=== PATIENT | male | born 1990 | race Caucasian/White ===

== ENCOUNTER 2024-01-02 16:36 | Emergency (ER) | payer BC, SELFPAY ==
[2024-01-02 16:37] VITALS: BP 165/98
[2024-01-02 17:05] VITALS: BMI 19.5
[2024-01-02 17:25] LABS: % Basophils 0.3 % (0-2); % Eosinophils 1.4 % (0-6); % Immature Granulocytes 0.2 % (0-0.5); % Lymphocytes 26.9 % (20.5-51.1); % Monocytes 9.3 % (1.7-9.3); % Neutrophils 61.9 % (42.2-75.2); Absolute Eosinophils 0.1 10^3/uL (0-0.7); Absolute Lymphocytes 1.6 10^3/uL (1.2-3.4); Absolute Monocytes 0.6 10^3/uL (0.1-0.6); Absolute Neutrophils 3.7 10^3/uL (1.4-6.5); Hematocrit 41.4 % (39.0-52.0); Hemoglobin 15.1 g/dL (13.0-18.0); Mean Corp Hgb Conc. 36.5 g/dL (33.0-37.0); Mean Corpuscular Hgb 30.6 pg (27.0-31.0); Mean Platelet Volume 9.3 fL (7.4-10.4); Nucleated Red Blood Cells % 0 % (-); Platelet Count 218 10^3/uL (130-400); Red Blood Cell Count 4.93 10^6/uL (4.70-6.10); White Blood Cell Count 5.9 10^3/uL (4.8-10.8)
[2024-01-02 17:39] LABS: ALT (SGPT) 17 U/L (0-50); AST (SGOT) 24 U/L (17-59); Albumin 4.7 g/dl (3.5-5.0); Alkaline Phosphatase 84 U/L (38-126); Blood Urea Nitrogen 17 mg/dl (9-20); Calcium 10.1 mg/dl (8.4-10.2); Carbon Dioxide 26 mmol/L (22-30); Chloride 99 mmol/L (98-107); Estimated Creatinine Clearance 118 ml/min; Glucose 97 mg/dl (70-99); Potassium 4.1 mmol/L (3.5-5.1); Sodium 134 mmol/L (135-145); Total Bilirubin 1.1 mg/dl (0.2-1.3); Total Protein 7.3 g/dl (6.3-8.2); eGFR > 60.00
[2024-01-02 17:40] LABS: Lipase 87 U/L (23-300)
[2024-01-02 18:20] VITALS: BP 138/82
[2024-01-02 18:38] LABS: Urine Albumin Negative (Neg - Trace); Urine Bilirubin Negative (Negative); Urine Character Clear (Clear); Urine Color Yellow; Urine Glucose Negative (Negative); Urine Ketone 1+ (Negative); Urine Leukocyte Negative (Negative); Urine Nitrite Negative (Negative); Urine Occult Blood Negative (Negative); Urine Specific Gravity 1.015 (<1.030); Urine Urobilinogen Negative (Neg - 1+)
--- NOTE | 2024-01-02 19:31 | ED.GENMED ---
History of Present Illness
General
Chief Complaint: Abdominal Pain
Source: patient
Exam Limitations: none
Time Seen by Provider: 01/02/24 17:31
Nursing documentation reviewed up to this point in time: agreed with
Travel History
Have you had any contact with someone who has COVID-19?: No
Do you have any symptoms of coronavirus? Fever > 100 degrees, chills, cough, shortness of breath, sore throat, loss of taste or smell, muscle aches, or headache?: No
History of Present Illness
History of Present Illness:
33-year-old male with past medical history of previous cardiac ablation for SVT presenting to the emergency department today with concerns of intermittent right upper quadrant pain over the past few nights seems to improve during the day not
specifically always with drinking and eating. No specific chest pain nausea vomiting changes in bowel movements.
Review of Systems
Review of Systems
Allergies reviewed?: Yes
All Other Systems: ROS reviewed and negative except as documented in HPI and ROS
Phy Exam
Physical Exam
Physical Exam:
GENERAL: Alert , in no apparent distress
EYE: pupils equal and reactive
NECK: Supple, no significant adenopathy.
ENT: o/p clr, mmm.
CARDIAC: Regular rate and rhythm .
LUNGS: Clear breath sounds bilaterally, no acute respiratory distress, no wheezes/rales/rhonchi
ABDOMEN: Mild tenderness palpation to the right upper quadrant otherwise soft benign abdomen
NEUROLOGICAL: Alert and oriented, no focal neuro deficits
SKIN: Warm and dry, skin intact.
MUSCULOSKELETAL: No edema, well perfused.
PSYCH: Normal and appropriate interaction.
Course
Orders/Labs/Results
Orders:
Orders
01/02/24 17:12
Complete Blood Count/With Diff Urgent
Comprehensive Metabolic Panel Urgent
Lipase Urgent
01/02/24 17:36
US Abdomen Complete/Upper Urgent
Comment:
Reason For Exam: RUQ pain
01/02/24 18:32
Urinalysis Reflex To Culture Urgent
Date Specimen was Collected: 01/02/24
Time Specimen was Collected: 18:21
01/02/24 19:22
Chest [CR Chest - 2 Views ] Urgent
Comment:
Reason For Exam: right lower cp
Abnormal Lab Results
01/02/24 01/02/24
17:12 18:32
Sodium 134 L mmol/L
(135-145)
Urine Ketones 1+ A
(Negative)
01/02/24 17:12
01/02/24 17:12
Vital Signs
Initial and Last Documented VS:
Initial Vital Signs
Temp Pulse Resp BP Pulse Ox
98.4 F 82 18 165/98 98
01/02/24 16:37 01/02/24 16:37 01/02/24 16:37 01/02/24 16:37 01/02/24 16:37
Last Documented Vital Signs
Temp Pulse Resp BP Pulse Ox
98.4 F 76 18 138/82 99
01/02/24 16:37 01/02/24 18:20 01/02/24 18:20 01/02/24 18:20 01/02/24 18:20
MDM/Problems Addressed
MDM/Problems Addressed:
33-year-old male presenting to the emergency department today with concerns of right upper quadrant abdominal pain intermittently over the past few days symptoms somewhat improved prior to my assessment very minimal pain on exam ultrasound ordered
without signs of any emergent pathology labs unremarkable normal bili normal level liver function test no white count. Patient no distress with normal vital signs. Chest x-ray without abnormalities to right lower lung patient peers stable for
outpatient management return precautions given.
*Critical Care Note
Total Time (30-74mins, 75-104mins- exclusive of procedures): Not Applicable
ED Attending Note
-
Portions of this chart may have been created with voice recognition software.� Occasional wrong word or��sound alike� substitutions may have occurred due to the inherent limitations of voice recognition software.
Discharge Plan
Departure
Patient Disposition: Home (Routine Discharge)
Date of Disposition: 01/02/24
Time of Disposition: 19:40
Patient with high blood pressure during this ER visit?: No
Condition: Good
Covid-19: Not Applicable
Discharge Problem:
Abdominal pain
Instructions: Abdominal Pain
Prescriptions:
No Action
lisinopril 20 mg Tablet
20 mg PO DAILY
bismuth subsalicylate [Pepto-Bismol] 262 mg/15 mL Suspension
524 mg PO DAILYPRN PRN (Reason: stomach issues)
clindamycin HCl
1 cap PO QID
Patient Comments:
01/02/2024, pt. unsure of strength; pt. instructed to take one capsule QID for 10 days; pt. states he has roughly 3 days left of this abx.; pt.'s pharmacy closed at time of interview and pt. has no [facility] records.
Referrals:
Hilda Benites DO [Family Provider] -
Activity Restrictions/Additional Instructions:
You came to the emergency department today with concerns of right upper abdominal pain. Here you had an ultrasound without emergent findings labs unremarkable normal chest x-ray as well. Please follow-up closely as an outpatient over the next week
or so. Return to the emergency department for any worsening, new or concerning symptoms.
Interventions
Interventions:
*Risk Screen - Suicide Last Done: 01/02/24 16:37
*General Assessment Last Done: 01/02/24 16:37
*Neglect/Abuse Screening Last Done: 01/02/24 16:37
ED- Fall Risk Assessment Last Done: 01/02/24 17:15
*ED COVID-19 Vaccine History Last Done: 01/02/24 16:37
KI-Crlpln-Whnzmzknxu Assessment Last Done: 01/02/24 17:15
Discharge Date and Time
Print Language: BENGALI
[2024-01-02 20:02] VITALS: BP 136/89
== END 2024-01-02 20:03 | disposition home or self-care (01) ==
LOC: EMR 16:36
PROVIDERS: Physician Assistant; EMERGENCY PHYSICIAN Emergency Medicine; FAMILY PHYSICIAN Family Medicine
DX: R10.11 Right upper quadrant pain (principal)
CPT/HCPCS: 99285; 71046; 76700; 80053; 81003; 83690; 85025

== ENCOUNTER 2024-11-05 06:20 | Day surgery (SDC) | payer BC, SELFPAY ==
[2024-11-05] VITALS (10 sets, daily range): BP systolic 134–146; BP diastolic 78–100; BMI 21.2
[2024-11-05] MEDS: NORMOSOL-R/PLASMALYTE-A 1000 IV (10:38)
[2024-11-05] MEDS: TYLENOL 1000 MG PO (10:38)
--- NOTE | 2024-11-05 10:57 | W.SUR.PREOP ---
Pre-Operative Surgical Note
-
I have examined this patient prior to the performance of the scheduled procedure.
The patient's condition is unchanged from the time of the current History and
Physical and the patient is able to undergo the scheduled procedure.
--- NOTE | 2024-11-05 10:57 | HP.FOC2 ---
Focused History & Physical
Chief Complaint
HPI:
Chief Complaint: Left inguinal hernia
HPI / Indication for Planned Procedure:
This is a 34-year-old male with a symptomatic left inguinal hernia
Relevant Past Medical History: Negative
Relevant Social History: Negative
Relevant Family History: Negative
Relevant Past Surgical History: Negative
Review of Systems
Review of Pertinent Systems: All Systems Negative
Medication
See Medication form for detailed medications: Yes
Medication List (including Herbals & OTC):
losartan 50 mg tablet 50 mg PO DAILY 10/30/24
Medications Reviewed: Yes
Allergies and Reactions
Patient has Allergies: Yes
Noted Allergies and Reactions:
Allergy/AdvReac Type Severity Reaction Status Date / Time
No Known Allergies Allergy Verified 11/05/24 10:12
Pertinent Physical Exam
All Other Systems: Negative
Head/Neck: Normal
Diagnosis / Assessment
This is a 34-year-old male with a symptomatic left inguinal hernia
Plan / Procedure
This is a 34-year-old male with a symptomatic left inguinal hernia. Will plan for a robotic left inguinal hernia repair with mesh.
Anesthesia/Sedation to be done by Anesthesia Provider: Yes
--- NOTE | 2024-11-05 12:44 | W.IMMPOSTOP ---
Surgical Immed Post Op Note
-
Primary Surgeon: Rafat Peña MD
Assisting Surgeon: None
Pre-op Diagnosis: Left inguinal hernia
Post-op Diagnosis: Same
Procedure Performed: Robotic left inguinal hernia repair with mesh
Anesthesia Type: General
Specimen / Cultures: None
Estimated Blood Loss: 1 cc
Complications: None
Operative Findings: Left indirect inguinal hernia. No direct or femoral components. No cord lipoma identified. After achieving the critical view of the MPO, the space was reinforced with a large left Bard 3D max uncoated polypropylene mesh.
--- NOTE | 2024-11-05 12:46 | OR.RPT ---
Addendum entered and electronically signed by Rafat Peña MD 11/05/24 14:54:
Under procedure description:
During closure of the flap no Angiocath was inserted and no local was instilled in the preperitoneal space. The area of the flap WAS evacuated using a metal suction cannula to ensure the mesh was flush with the abdominal wall and there were no
folds.
Original Note:
Operative Report
Operative Report
Patient Name: Michael Dallas
: 1990
Date of Operation: 11/05/2024
Preoperative Diagnosis: Reducible Inguinal hernia, left
Postoperative Diagnosis: Same
Procedure(s):
Robotic Inguinal Hernia Repair with mesh, left (ROULA approach)
Surgeon(s):
Dr. Peña
Cosmetic Sales Advisor(s):
JOSE Nelson
Anesthesia: General
Estimated Blood Loss: 1 cc
Urine Output: None
Drains/Lines/Implants: Large 3D Max Bard mid weight uncoated polypropylene mesh
Specimens: None
Indication for surgery: The patient has a history of groin pain and noted on exam to have a Left inguinal Hernia(s). Following review of therapeutic options they have elected to undergo a minimally invasive repair.
Operative Findings: Left indirect inguinal hernia. No direct or femoral components. No cord lipoma identified. After achieving the critical view of the MPO, the space was reinforced with a large left Bard 3D max uncoated polypropylene mesh.
Details of the operation:
The patient was brought to the Operating Room and placed in the supine position with the arms tucked. IV antibiotics were infused and Venodyne stockings placed. Following uneventful induction of general endotracheal anesthesia, an orogastric tube
was placed. The abdomen was prepped and draped in the usual sterile fashion. The abdomen was entered using a Veress technique which required 1 pass, pneumoperitoneum to 15 mmHg was obtained without difficulty. An 8mm trochar was passed through the
abdominal wall roughly 20 cm cephalad to the inguinal canal. We then confirmed that no inadvertent injury was made while passing the trocar or Veress needle. We then placed two additional 8 mm ports in the left upper and right upper quadrants. We
then docked the robot with a Prograsper in the left hand port and monopolar scissors in the right. Left indirect hernia, no defect noted on the right. We then began by creating a flap on the left side at the level of the ASIS laterally working our
way medially to the medial umbilical fold. Staying onto the peritoneum we were able to circumferentially dissect around the hernia sac and and peel it off of the underlying spermatic cord and testicular vessels, taking care to preserve them.
Medially we identified the midline pubis as well as King's ligament and ensured to dissect 2 cm below the pubic rim over the bladder. After exposure of the entire myopectineal orifice we identified and reduced: A medium sized indirect inguinal
hernia, no direct inguinal hernia, no femoral hernia, and no cord lipoma
We then fixated a large 3D max mesh with a 2-0 Vicryl stitch at coopers medially and superior laterally. The flap was then closed with a running 2-0 barbed monocryl suture ensuring that the tail was cut flush with the medial fat pad so that no
barbs were exposed. During the closure of the flap an Angiocath was inserted and 20 cc of quarter percent Marcaine was instilled. The area in the flap cavity was then evacuated of air confirming that the mesh was flush and there were no folds. All
needles and instruments were then removed and the robot was undocked. The abdomen was then desufflated, and pneumoperitoneum evacuated. All skin sites were then closed with 4-0 Monocryl followed by Dermabond. Counts were correct and overall, the
patient tolerated the procedure well and was taken to the Recovery Room postoperatively in stable condition.
I was the attending physician and performed the procedure with assistance of the PA above. The assistance of JOSE Nelson was required due to the complexity of the procedure. During the procedure Ame assisted with port placement, instrument
and needle exchanges, and closure of the wound. I was present for all portions of the case, excluding skin closure.
Rafat Peña MD
[2024-11-05] MEDS: ROXICODONE 5 MG PO (13:56)
[2024-11-05] MEDS: ZOFRAN 4 MG IV (15:19)
== END 2024-11-05 15:30 | disposition home or self-care (01) ==
LOC: SDS 06:20
PROVIDERS: ATTENDING PHYSICIAN Surgery
DX: K40.90 Unilateral inguinal hernia, without obstruction or gangrene, not specified as recurrent (principal)
CPT/HCPCS: 49650; C1781